=== PATIENT | male | born 1995 | race Caucasian/White ===

== ENCOUNTER 2020-02-19 10:40 | Emergency (ER) | payer BC ==
[~2020-02-19] VITALS: Ht 177.8 cm; Wt 65.2 kg
--- NOTE | 2020-02-19 11:49 | NUR ---
Note sachaone in EDM - 02/19/20 at 1159 by SYLVIE INITIAL PT CONTACT. PT PRESENTS TO ED C/O SORE THROAT AND "CHEST ESQUIVEL OR ACID REFLUX". PT IS 28 WEEKS . PT SITTING UPRIGHT ON TIFF[place]PTON, JOHN, VSS. PT DENIES ANY NEEDS AT THIS TIME. CALL LIGHT AND PERSONAL BELONGINGS WITHIN REACH.
--- NOTE | 2020-02-19 13:16 | NUR ---
pt to room from lobby
--- NOTE | 2020-02-19 13:16 | NUR ---
INITIAL PT CONTACT. PRESENTS TO ED C/O HEADACHE, DIZZY, SOB, AND VISION PROBLEMS. PT +COVID EARLIER THIS WEEK. PT STATES "SYMPTOMS HAVE GOTTEN BETTER SINCE NAPPING IN THE LOBBY". PT SITTING UPRIGHT ON GURNEY. NAD, VSS. CALL LIGHT AND PERSONAL BELOINGS WITHIN REACH. ERP AT BEDSIDE.
[2020-02-19 13:34] LABS: BASOPHILS % (AUTO) 1 % (0-1); EOSINOPHILS % (AUTO) 1 % (1-7); LYMPHOCYTES % (AUTO) 12 % (22-44); MEAN CORPUSCULAR HEMOGLOBIN 29.8 pg (27.5-34.5); MEAN CORPUSCULAR HGB CONC 34.7 g/dL (33.2-36.2); MEAN PLATELET VOLUME 8.7 fL (7.4-10.4); MONOCYTES % (AUTO) 8 % (2-9); NEUTROPHILS % (AUTO) 79 % (42-75); PLATELET COUNT 147 x10^3/uL (130-400); RED BLOOD COUNT 5.05 x10^6/uL (4.38-5.82); RED CELL DISTRIBUTION WIDTH 12.5 % (9.4-14.8)
[2020-02-19 13:38] LABS: MD NO
[2020-02-19 13:44] LABS: ALANINE AMINOTRANSFERASE 35 U/L (12-78); ALBUMIN 4.4 g/dL (3.4-5.0); ANION GAP 4 mmol/L (5-15); CALCIUM 8.8 mg/dL (8.5-10.1); CHLORIDE 108 mmol/L (98-107); CREATININE 0.99 mg/dL (0.7-1.3)
[2020-02-19 13:46] LABS: ALKALINE PHOSPHATASE 62 U/L (45-117); BILIRUBIN,TOTAL 1.5 mg/dL (0.2-1.0); TOTAL PROTEIN 7.3 g/dL (6.4-8.2)
--- NOTE | 2020-02-19 14:03 | NUR ---
PT SITTING UPRIGHT ON GURNEY. NAD, VSS. CALL LIGHT AND PERSONAL BELOINGS WITHIN REACH. PT DENIES ANY NEEDS AT THIS TIME.
[2020-02-19 14:45] VITALS: BP 133/62
--- NOTE | 2020-02-19 14:51 | NUR ---
Patient given discharge instructions and they have confirmed that they understand the instructions. Patient ambulatory with steady gait.
== END 2020-02-19 14:56 | disposition home or self-care (01) ==
LOC: ED 14:11
DX: R11.0 Nausea (principal); R42 Dizziness and giddiness; R51.9 Headache, unspecified
CPT/HCPCS: 36415; 71045; 80053; 85025; 93005; 99285